=== PATIENT | female | born 1950 | race Two or more races ===

== ENCOUNTER 2016-07-12 16:49 | Emergency (ER) | payer OTHER ==
[2016-07-12] MEDS ORDERED: IBUPROFEN 200 MG TABLET ONE (18:12)
== END 2016-07-12 18:28 | disposition home or self-care (01) ==
LOC: ED 16:49
DX: R10.9 Unspecified abdominal pain (principal); M25.511 Pain in right shoulder; R11.0 Nausea; I10 Essential (primary) hypertension; V43.63XA Car passenger injured in collision with pick-up truck in traffic accident, initial encounter; Y92.410 Unspecified street and highway as the place of occurrence of the external cause
CPT/HCPCS: 99283 ×2; A9270